=== PATIENT | female | born 1980 | race Caucasian/White ===

== ENCOUNTER 2018-03-20 23:27 | Emergency (ER) | payer OTHER ==
[2018-03-20 23:39] VITALS: BP 121/66; PULSE 86; TEMP 97.7; BMI 26.6
== END 2018-03-21 00:50 | disposition left against medical advice (07) ==
LOC: JER 23:27
DX: Z53.21 Procedure and treatment not carried out due to patient leaving prior to being seen by health care provider (principal)
CPT/HCPCS: 99281-25